=== PATIENT | male | born 1980 | race Two or more races ===

== ENCOUNTER 2023-11-19 21:55 | Inpatient (IN) | payer MEDICAID, OTHER ==
[~2023-11-19] VITALS: Ht 172.7 cm; Wt 80.7 kg
[2023-11-19] MEDS ORDERED: LEVETIRACETAM (500MG) 500 MG/5 ML VIAL IV ONE (22:19)
[2023-11-19] MEDS: LEVETIRACETAM (500MG) 1,000 MG in IV NS 0.9% 90 ML IV SCH (22:23)
[2023-11-19] MEDS: IV NS 0.9% 1,000 ML IV ONE (22:30)
[2023-11-19] MEDS: LEVETIRACETAM (500MG) 1,000 MG in IV NS 0.9% 90 ML IV STA (22:30)
[2023-11-19 22:59] LABS: BASOPHILS # (AUTO) 0.1 K/uL (0.0-0.2); EOSINOPHILS % (AUTO) 0.5 % (0.0-6.0); HEMATOCRIT 45 % (39-51); HEMOGLOBIN 15.3 g/dL (13.5-17.5); LYMPHOCYTES # (AUTO) 1.8 K/uL (0.8-4.8); LYMPHOCYTES % (AUTO) 19.1 % (20.0-44.0); MEAN CORPUSCULAR HEMOGLOBIN 36 PG (26.0-33.0); MEAN CORPUSCULAR HGB CONC 34 g/dl (31.0-36.0); MEAN CORPUSCULAR VOLUME 107 fL (80-96); MONOCYTES # (AUTO) 0.7 K/uL (0.1-1.30); MONOCYTES % (AUTO) 7.1 % (2.0-12.0); NEUTROPHILS # (AUTO) 6.7 K/uL (1.8-8.9); NEUTROPHILS % (AUTO) 72.3 % (43.0-81.0); PLATELET COUNT (AUTO) 304 K/uL (150-450); RED CELL DISTRIBUTION WIDTH 18.8 % (11.5-15.0); WHITE BLOOD COUNT (AUTO) 9.3 K/uL (4.3-11.0)
[2023-11-19 23:32] LABS: ALANINE AMINOTRANSFERASE 43 U/L (12-78); ALBUMIN 3.7 g/dL (3.4-5.0); ALCOHOL, BLOOD < 3 mg/dL (0-10); ALKALINE PHOSPHATASE 109 U/L (46-116); ASPARTATE AMINOTRANSFERASE 88 U/L (15-37); BILIRUBIN,TOTAL 3.6 mg/dL (0.2-1.0); CALCIUM, SERUM 8.9 mg/dL (8.5-10.1); CARBON DIOXIDE 22 mmol/L (21-32); CHLORIDE 90 mmol/L (98-107); GLUCOSE 93 mg/dL (74-106); POTASSIUM 3.2 mmol/L (3.5-5.1); SODIUM SERUM 131 mmol/L (136-145); TOTAL PROTEIN, SERUM 8.3 g/dL (6.4-8.2); UREA NITROGEN, BLOOD 4 mg/dL (7-18)
[2023-11-19 23:37] LABS: LACTIC ACID 7.7 mmol/L (0.4-2.0)
[2023-11-20] MEDS: IV NS 0.9% 1,000 ML IV ONE
[2023-11-20] MEDS ORDERED: Magnesium 1GM/D5W 100ML PREMIX 100 ML IV ONE ×2 (00:29→01:33)
[2023-11-20] MEDS: Magnesium 1GM/D5W 100ML PREMIX 100 ML IV SCH ×2 (00:30→01:30)
[2023-11-20] MEDS ORDERED: POTASSIUM CL. PREMIX PERIPHER. 50 ML ONE (00:54)
[2023-11-20] MEDS: POTASSIUM CL. PREMIX PERIPHER. 50 ML IV SCH (00:59)
[2023-11-20] MEDS: LORAZEPAM INJ 2 MG/ML VIAL IV ONE (01:00)
[2023-11-20] MEDS ORDERED: LORAZEPAM INJ 2 MG/ML VIAL ONE (01:03)
[2023-11-20 01:13] LABS: APPEARANCE,URINE SLIGHTLY CLOUDY (CLEAR); BILIRUBIN,URINE 2+ (NEGATIVE); BLOOD, URINE TRACE-INTA Ery/uL (NEGATIVE); COLOR,URINE DARK YELLOW (YELLOW); KETONES,URINE 3+ mg/dL (NEGATIVE); LEUKOCYTE ESTERASE ,URINE NEGATIVE (NEGATIVE); NITRITE, URINE NEGATIVE (NEGATIVE); PROTEIN,URINE 2+ mg/dl (NEGATIVE); UGLUCOSE NEGATIVE (NEGATIVE)
[2023-11-20 01:23] LABS: AMPHETAMINE, URINE NEGATIVE (NEGATIVE); BARBITURATE, URINE NEGATIVE (NEGATIVE); COCCAINE, URINE NEGATIVE (NEGATIVE); OPIATE, URINE NEGATIVE (NEGATIVE); PHENCYCLIDINE SCREEN,URINE NEGATIVE (NEGATIVE)
[2023-11-20 01:25] LABS: ADD URINE CULTURE YES; BACTERIA,URINE Rare /HPF (None Seen); MUCUS,URINE Many /LPF (None Seen); SQUAMOUS EPITHELIAL CELL,UR Rare /HPF (None Seen)
[2023-11-20 01:28] LABS: BENZODIAZEPINE, URINE POSITIVE (NEGATIVE); CANNABINOID, URINE POSITIVE (NEGATIVE)
[2023-11-20 01:49] LABS: BILIRUBIN,DIRECT 1.2 mg/dL (0.0-0.2)
[2023-11-20 01:55] LABS: LACTIC ACID REFLEX 1.6 mmol/L (0.4-1.9)
[2023-11-20] MEDS ORDERED: MAGNESIUM HYDROXIDE 30 ML UDC PO PRN (02:00)
[2023-11-20] MEDS ORDERED: ONDANSETRON HCL/PF 4 MG/2 ML VIAL IVP PRN (02:00)
[2023-11-20] MEDS ORDERED: ACETAMINOPHEN 325 MG TABLET PO PRN (02:00)
[2023-11-20] MEDS ORDERED: Z GUARD REMEDY 4 OZ OINT TP PRN (02:00)
[2023-11-20] MEDS ORDERED: MAG HYDROX/AL HYDROX/SIMETH 30 ML UDC PO PRN (02:00)
[2023-11-20] MEDS ORDERED: CHLORDIAZEPOXIDE HCL 25 MG CAPSULE PO PRN (02:00)
[2023-11-20] MEDS ORDERED: ZOLPIDEM TARTRATE 5 MG TABLET PO PRN (02:00)
[2023-11-20] MEDS: IV NS 0.9% 1,000 ML IV PRN (03:07)
[2023-11-20 04:00] VITALS: BP 124/84; TEMP 97.5; O2SAT 96
[2023-11-20 07:38] LABS: BASOPHILS # (AUTO) 0.1 K/uL (0.0-0.2); EOSINOPHILS # (AUTO) 0.1 K/uL (0.0-0.7); EOSINOPHILS % (AUTO) 1.4 % (0.0-6.0); HEMATOCRIT 38 % (39-51); HEMOGLOBIN 12.9 g/dL (13.5-17.5); LYMPHOCYTES # (AUTO) 1.3 K/uL (0.8-4.8); LYMPHOCYTES % (AUTO) 17.8 % (20.0-44.0); MEAN CORPUSCULAR HEMOGLOBIN 36 PG (26.0-33.0); MEAN CORPUSCULAR HGB CONC 34 g/dl (31.0-36.0); MEAN CORPUSCULAR VOLUME 106 fL (80-96); MONOCYTES # (AUTO) 0.8 K/uL (0.1-1.30); MONOCYTES % (AUTO) 11.9 % (2.0-12.0); NEUTROPHILS # (AUTO) 4.8 K/uL (1.8-8.9); NEUTROPHILS % (AUTO) 67.9 % (43.0-81.0); PLATELET COUNT (AUTO) 275 K/uL (150-450); RED BLOOD CELL COUNT(AUTO) 3.57 MIL/uL (4.5-6.0); RED CELL DISTRIBUTION WIDTH 18.7 % (11.5-15.0)
[2023-11-20] MEDS: PANTOPRAZOLE 40 MG TABLET.DR PO SCH (07:50)
[2023-11-20 08:00] VITALS: BP 127/49; TEMP 97.7; O2SAT 99
[2023-11-20 08:06] LABS: ALBUMIN 2.6 g/dL (3.4-5.0); BILIRUBIN,DIRECT 0.8 mg/dL (0.0-0.2); BILIRUBIN,TOTAL 2.7 mg/dL (0.2-1.0); CALCIUM, SERUM 7.6 mg/dL (8.5-10.1); CREATININE 0.7 mg/dL (0.6-1.3); MAGNESIUM 2.5 mg/dL (1.8-2.4); PHOSPHORUS 2.5 mg/dL (2.5-4.9); TOTAL PROTEIN, SERUM 6.1 g/dL (6.4-8.2)
[2023-11-20] MEDS: THIAMINE HCL 100 MG TABLET PO SCH (08:06)
[2023-11-20] MEDS: MULTIVIT W/MINERALS 1 TAB TABLET PO SCH (08:07)
[2023-11-20] MEDS: FOLIC ACID 1 MG TABLET PO SCH (08:07)
[2023-11-20 08:09] LABS: LACTIC ACID 0.8 mmol/L (0.4-2.0)
[2023-11-20 08:12] LABS: THYROID STIMULATING HORMONE 0.9 uIU/mL (0.358-3.74)
[2023-11-20] MEDS: LEVETIRACETAM (500MG) 500 MG in IV NS 0.9% 100 ML IV SCH (08:34)
[2023-11-20] MEDS ORDERED: LEVE500T20 PO (10:03)
[2023-11-20] MEDS ORDERED: FOLI0.4T6 PO (10:03)
[2023-11-20] MEDS ORDERED: THIA100T88 PO (10:03)
[2023-11-20] MEDS: POTASSIUM CHLORIDE 20 MEQ TAB.PRT.SR PO ONE (10:57)
[2023-11-20 10:58] LABS: THYROID STIMULATING HORMONE 0.87 uIU/mL (0.358-3.74)
[2023-11-20 12:00] VITALS: BP 119/84; TEMP 98.2; O2SAT 97
[2023-11-21 08:11] LABS: FOLIC ACID > 20.0 ng/mL (>3.0)
[2023-11-25 14:06] LABS: VITAMIN B1 THIAMINE,WB 140.5 nmol/L (66.5-200.0)
[2023-11-26 11:07] LABS: METHYLMALONIC ACID 149 nmol/L (0-378)
== END 2023-11-20 13:18 | disposition left against medical advice (07) | DRG 53 ==
LOC: ER 21:58 → EDBD 21:58 → TELE1 11-20 01:17
PROVIDERS: ADMIT Nurse Practitioner Family; ATTEND Nurse Practitioner Family
DX: G40.509 Epileptic seizures related to external causes, not intractable, without status epilepticus (principal); E87.20 Acidosis, unspecified; K83.1 Obstruction of bile duct; E87.1 Hypo-osmolality and hyponatremia; K74.60 Unspecified cirrhosis of liver; K76.0 Fatty (change of) liver, not elsewhere classified; D64.9 Anemia, unspecified; F10.139 Alcohol abuse with withdrawal, unspecified; E87.6 Hypokalemia; Y90.0 Blood alcohol level of less than 20 mg/100 ml; R74.01 Elevation of levels of liver transaminase levels; Z91.199 Patient's noncompliance with other medical treatment and regimen due to unspecified reason
CPT/HCPCS: 36415; 70450-TC; 71045-TC; 80048-TC; 80053-TC; 80061-TC; 80076-TC; 81001; 82150-TC; 82248-TC; 82607-TC; 83605-TC; 83690-TC; 83735-TC; 83921; 84100-TC; 84425; 84443-TC; 85025-TC; 87086-TC; A4223; G0378; G0480; J1953; J2060; J3475; J3480; J7030